=== PATIENT | female | born 1980 | race American Indian/Alaskan Native ===

== ENCOUNTER 2020-06-27 16:39 | Emergency (ER) | payer SELFPAY ==
--- NOTE | 2020-06-27 17:04 | Emergency Department Report ---
Blank Doc - Documentation Documentation: [id number] that presents with uncontrolled HTN. Stated has been out of her blood pressure medications for 4 months. Denies any symptoms or complaints. This initial assessment/diagnostic orders/clinical plan/treatment(s) is/are subject to change based on patient's health status, clinical progression and re- assessment by fellow clinical providers in the ED. Further treatment and workup at subsequent clinical providers discretion. Patient/guardians urged not to elope from the ED as their condition may be serious if not clinically assessed and managed. Initial orders include: 1- Patient sent to [facility] for further evaluation and treatment 2-labs/EKG r/o HTN emergency
[2020-06-27 17:32] LABS: Basophils % (Auto) 0.5 % (0.0-1.8); Eosinophils # (Auto) 0.1 K/mm3 (0.0-0.4); Eosinophils % (Auto) 0.8 % (0.0-4.3); Hematocrit 29.1 % (30.3-42.9); Hemoglobin 9.2 gm/dl (10.1-14.3); Mean Corpuscular HGB Conc 32 % (30-34); Mean Corpuscular Volume 79 fl (79-97); Monocytes # (Auto) 0.6 K/mm3 (0.0-0.8); Monocytes % (Auto) 7.6 % (0.0-7.3); Platelet Count 285 K/mm3 (140-440); Red Blood Count 3.66 M/mm3 (3.65-5.03)
[2020-06-27 17:39] LABS: Alanine Aminotransferase 119 units/L (7-56); Albumin 4.4 g/dL (3.9-5); Blood Urea Nitrogen 8 mg/dL (7-17); Calcium 9.2 mg/dL (8.4-10.2); Hemolysis Index 0
[2020-06-27 17:43] LABS: BUN/Creatinine Ratio 13
[2020-06-27] MEDS ORDERED: cloNIDine 0.2 MG TAB PO ONE (18:18)
[2020-06-27] MEDS ORDERED: HYDROcodone/ACETAMINOPHEN 5-325 MG TAB PO ONE (18:18)
--- NOTE | 2020-06-27 18:22 | Emergency Department Report ---
HPI - General Chief Complaint: High BP Time Seen by Provider: 06/27/20 17:02 - HPI HPI: Room 5 The patient is a 39-year-old female present with a chief complaint of hypertension. The patient states she awakened this morning with pain behind her left shoulder blade. Patient states the pain increases with movement. Patient denies any preceding trauma. Patient states she noticed that her blood pressure was elevated at 190 systolic. Patient states she went to an urgent care facility for her shoulder pain and was instructed to come to the ED secondary to her blood pressure. Patient states she has been out of her blood pressure medication for the past 4 months. Patient states when she first arrived to the ED she did not have a headache but she has since developed a frontal headache and gives it a score of 7/10 ED Past Medical Hx - Past Medical History Previous Medical History?: Yes Hx Hypertension: Yes - Surgical History Past Surgical History?: Yes Additional Surgical History: - Family History Family history: no significant - Social History Smoking Status: Current Every Day Smoker (1/3 pack/day) Substance Use Type: None (Denies illicit drug use), Alcohol (Daily) - Medications Home Medications: Home Medications Medication Instructions Recorded Confirmed Last Taken Type Ciprofloxacin HCl [Ciprofloxacin 500 mg PO Q12HR #14 tab 06/27/20 Unknown Rx TAB] HYDROcodone/APAP 5-325 [[place] 1 - 2 each PO Q6HR PRN #10 tablet 06/27/20 Unknown Rx 5/325] Ibuprofen [Motrin 800 MG tab] 800 mg PO Q8HR PRN #20 tablet 06/27/20 Unknown Rx NIFEdipine [Nifedipine ER] 60 mg PO BID #60 tab.er.24 06/27/20 Unknown Rx labetaloL [Labetalol 200mg TAB] 200 mg PO BID #60 tablet 06/27/20 Unknown Rx ED Review of Systems ROS: Stated complaint: HYPERTENSION Other details as noted in HPI Constitutional: no symptoms reported Eyes: denies: eye pain ENT: denies: throat pain Respiratory: no symptoms reported Cardiovascular: denies: chest pain Endocrine: no symptoms reported Gastrointestinal: denies: abdominal pain, nausea, vomiting Genitourinary: denies: dysuria Musculoskeletal: arthralgia, myalgia Neurological: headache Physical Exam - Physical Exam Vital Signs: Vital Signs 06/27/20 06/27/20 16:53 17:54 Temperature 98.6 F Pulse Rate 85 Respiratory 20 16 Rate Blood Pressure 221/124 O2 Sat by Pulse 100 97 Oximetry Physical Exam: GENERAL: The patient is well-developed well-nourished female lying on stretcher using cell phone not appearing to be in acute distress. [] HEENT: Normocephalic. Atraumatic. Extraocular motions are intact. Patient has moist mucous membranes. NECK: Supple. Trachea midline CHEST/LUNGS: Clear to auscultation. There is no respiratory distress noted. HEART/CARDIOVASCULAR: Regular. There is no tachycardia. There is no gallop rub or murmur. ABDOMEN: Abdomen is soft, nontender. Patient has normal bowel sounds. There is no abdominal distention. SKIN: There is no rash. There is no edema. There is no diaphoresis. NEURO: The patient is awake, alert, and oriented. The patient is cooperative. The patient has no focal neurologic deficits. The patient has normal speech MUSCULOSKELETAL: There is no evidence of acute injury. ED Course Vital Signs 06/27/20 06/27/20 16:53 17:54 Temperature 98.6 F Pulse Rate 85 Respiratory 20 16 Rate Blood Pressure 221/124 O2 Sat by Pulse 100 97 Oximetry ED Medical Decision Making - Lab Data Result diagrams: 06/27/20 17:05 06/27/20 17:05 Laboratory Tests 06/27/20 06/27/20 06/27/20 17:05 17:05 17:05 WBC 7.8 RBC 3.66 Hgb 9.2 L Hct 29.1 L MCV 79 MCH 25 L MCHC 32 RDW 19.0 H Plt Count 285 Lymph % (Auto) 25.0 [place] % (Auto) 7.6 H Eos % (Auto) 0.8 Baso % (Auto) 0.5 Lymph # (Auto) 2.0 [place] # (Auto) 0.6 Eos # (Auto) 0.1 Baso # (Auto) 0.0 Seg Neutrophils % 66.1 Seg Neutrophils # 5.2 Sodium 137 Potassium 4.1 Chloride 100.4 Carbon Dioxide 25 Anion Gap 16 BUN 8 Creatinine 0.6 Estimated GFR > 60 BUN/Creatinine Ratio 13 Glucose 128 H Calcium 9.2 Total Bilirubin 0.20 AST 147 H ALT 119 H Alkaline Phosphatase 63 Troponin T < 0.010 Total Protein 7.3 Albumin 4.4 Albumin/Globulin Ratio 1.5 Urine Color Urine Turbidity Urine pH Ur Specific [place] Urine Protein Urine Glucose (UA) Urine Ketones Urine Blood Urine Nitrite Urine Bilirubin Urine Urobilinogen Ur Leukocyte Esterase Urine WBC (Auto) Urine RBC (Auto) U Epithel Cells (Auto) Urine Bacteria (Auto) Urine Mucus Urine HCG, Qual 06/27/20 06/27/20 17:54 Unknown WBC RBC Hgb Hct MCV MCH MCHC RDW Plt Count Lymph % (Auto) [place] % (Auto) Eos % (Auto) Baso % (Auto) Lymph # (Auto) [place] # (Auto) Eos # (Auto) Baso # (Auto) Seg Neutrophils % Seg Neutrophils # Sodium Potassium Chloride Carbon Dioxide Anion Gap BUN Creatinine Estimated GFR BUN/Creatinine Ratio Glucose Calcium Total Bilirubin AST ALT Alkaline Phosphatase Troponin T Total Protein Albumin Albumin/Globulin Ratio Urine Color Yellow Urine Turbidity Slightly-cloudy Urine pH 5.0 Ur Specific [place] 1.023 Urine Protein 100 mg/dl Urine Glucose (UA) Neg Urine Ketones Tr Urine Blood Neg Urine Nitrite Neg Urine Bilirubin Neg Urine Urobilinogen 4.0 Ur Leukocyte Esterase Lg Urine WBC (Auto) 25.0 H Urine RBC (Auto) 2.0 U Epithel Cells (Auto) 20.0 H Urine Bacteria (Auto) 1+ Urine Mucus 3+ Urine HCG, Qual Negative - EKG Data -: EKG Interpreted by Mi EKG shows normal: sinus rhythm Rate: normal - EKG Data When compared to previous EKG there are: previous EKG unavailable Interpretation: other (No ischemic changes seen) - Radiology Data Radiology results: report reviewed (CT head), image reviewed (CT head) Findings [address] [address] Cat Scan Report Signed Patient: MEMO MCCABE MR#: [id number] : 1980 Acct:[id number] Age/Sex: 39 / F ADM Date: 06/27/20 Loc: ED Attending Dr: Ordering Physician: NEGRO PORTER MD Date of Service: 06/27/20 Procedure(s): CT head/brain wo con Accession Number(s): [id number] cc: NEGRO PORTER MD CT HEAD WITHOUT CONTRAST INDICATION / CLINICAL INFORMATION: Hypertension, headache. TECHNIQUE: All CT scans at this location are performed using CT dose reduction for ALARA by means of automated exposure control. COMPARISON: None available. FINDINGS: HEMORRHAGE: No evidence of intracranial hemorrhage or extra-axial fluid collection. EXTRA-AXIAL SPACES: Cortical sulci, sylvian fissures and basilar cisterns have an unremarkable appearance. VENTRICULAR SYSTEM: The ventricular system is of normal size and configuration. CEREBRAL PARENCHYMA: No areas of abnormal brain parenchymal attenuation are identified. There is no indication of recent infarction. MIDLINE SHIFT OR HERNIATION: There is no mass effect. CEREBELLUM / BRAINSTEM: Brainstem and cerebellum have an unremarkable appearance. MIDLINE STRUCTURES:No abnormalities of the pituitary gland or pineal region are identified. INTRACRANIAL VESSELS:No abnormalities are identified on this noncontrast head CT. ORBITS: visualized portions of the orbits have an unremarkable appearance. SOFT TISSUES of HEAD: No significant abnormality. CALVARIUM: Evaluation of bone windows reveals no abnormalities. PARANASAL SINUSES / MASTOID AIR CELLS: Paranasal sinuses are free from inflammatory mucosal disease. Mastoid air cells are normally pneumatized. IMPRESSION: 1. Normal head CT without contrast. Signer Name: Blane Cain MD Signed: 06/27/2020 6:59 PM Workstation Name: [id number] Transcribed By: Dictated By: Blane Cain MD Electronically Authenticated By: Blane Cain MD Signed Date/Time: 06/27/201858 DD/ 57 TD/TT: - Differential Diagnosis Hypertensive urgency, hypertensive emergency, rotator cuff injury, bursitis Critical care attestation.: If time is entered above; I have spent that time in minutes in the direct care of this critically ill patient, excluding procedure time. ED Disposition Clinical Impression: Uncontrolled hypertension, Left shoulder pain Disposition: - TO HOME OR SELFCARE Is pt being admited?: No Does the pt Need Aspirin: No Condition: Stable Instructions: Hypertension (ED), Hypertension, Adult, [id number], Rotator Cuff Tendinitis, Rotator Cuff Tear Additional Instructions: Return to the emergency department should you develop worsening symptoms, inability to tolerate food or liquids, high fever or any other concerns Prescriptions: Ciprofloxacin HCl [Ciprofloxacin TAB] 500 mg PO Q12HR #14 tab labetaloL [Labetalol 200mg TAB] 200 mg PO BID #60 tablet Ibuprofen [Motrin 800 MG tab] 800 mg PO Q8HR PRN #20 tablet PRN Reason: Pain, Moderate (4-6) NIFEdipine [Nifedipine ER] 60 mg PO BID #60 tab.er.24 HYDROcodone/APAP 5-325 [[place] 5/325] 1 - 2 each PO Q6HR PRN #10 tablet PRN Reason: Pain Referrals: PRIMARY CAREMD [Primary Care Provider] - 3-5 Days [facility] [Provider Group] - 3-5 Days GOOD MUNIZ MD [Staff Physician] - 3-5 Days (Dr. Muniz is an orthopedic surgeon. Please follow-up with him for further evaluation of your left shoulder pain) Time of Disposition: 20:12
[2020-06-27 18:28] LABS: HCG Qualitative,Urine Negative (Negative)
[2020-06-27 18:33] LABS: Bacteria,Urine 1+ /HPF (Negative); Bilirubin,Urine NEG (Negative); Blood,Urine NEG (Negative); Color,Urine Yellow (Yellow); Mucus,Urine 3+ /HPF
--- NOTE | 2020-06-27 19:03 | Cat Scan Report ---
CT HEAD WITHOUT CONTRAST INDICATION / CLINICAL INFORMATION: Hypertension, headache. TECHNIQUE: All CT scans at this location are performed using CT dose reduction for ALARA by means of automated e xposure control. COMPARISON: None available. FINDINGS: HEMORRHAGE: No evidence of intracranial hemorrhage or extra-axial fluid collection. EXTRA-AXIAL SPACES: Cortical sulci, sylvian fissures and basilar cisterns have an unremarkable appear ance. VENTRICULAR SYSTEM: The ventricular system is of normal size and configuration. CEREBRAL PARENCHYMA: No areas of abnormal brain parenchymal attenuation are identified. There is no i ndication of recent infarction. MIDLINE SHIFT OR HERNIATION: There is no mass effect. CEREBELLUM / BRAINSTEM: Brainstem and cerebellum have an unremarkable appearance. MIDLINE STRUCTURES:No abnormalities of the pituitary gland or pineal region are identified. INTRACRANIAL VESSELS:No abnormalities are identified on this noncontrast head CT. ORBITS: visualized portions of the orbits have an unremarkable appearance. SOFT TISSUES of HEAD: No significant abnormality. CALVARIUM: Evaluation of bone windows reveals no abnormalities. PARANASAL SINUSES / MASTOID AIR CELLS: Paranasal sinuses are free from inflammatory mucosal disease. Mastoid air cells are normally pneumatized. IMPRESSION: 1. Normal head CT without contrast. Signer Name: Blane Cain MD Signed: 06/27/2020 6:59 PM Workstation Name: [id number]
[2020-06-27 20:01] VITALS: BP 161/104
== END 2020-06-27 20:10 | disposition home or self-care (01) ==
LOC: ED 16:39
DX: I10 Essential (primary) hypertension (principal); M25.512 Pain in left shoulder; F17.200 Nicotine dependence, unspecified, uncomplicated; Z79.899 Other long term (current) drug therapy
CPT/HCPCS: 36415; 70450; 80053; 81001; 81025; 84484; 85025; 87086; 93005

== ENCOUNTER 2021-08-14 14:36 | Emergency (ER) | payer MEDICAID, OTHER ==
[2021-08-14] MEDS ORDERED: KETOROLAC 30 MG/1 ML INJ IM ONE (14:45)
--- NOTE | 2021-08-14 14:49 | Emergency Department Report ---
ED General Adult HPI - General Chief complaint: Pain General Stated complaint: extreme pain Time Seen by Provider: 08/14/21 14:44 Source: patient Mode of arrival: Ambulatory Limitations: No Limitations - History of Present Illness Initial comments: Patient presents with 1/2-day history of myalgia. She reports having severe body pain. This started this morning. She woke up and the pain was there. She has had cough with congestion. She states that she feels as though her head is going to explode. She has muscle aches all over. This include arms and legs, neck and back, chest and abdomen. She states that she has severe pain and just cannot get comfortable. She did not take anything at home. She has cough with congestion. Cough has been nonproductive. She has had subjective fevers and chills. There is no GI or complaint. She has not been vaccinated for COVID or influenza. Severity scale (0 -10): 10 - Related Data Previous Rx's Medication Instructions Recorded Last Taken Type HYDROcodone/APAP 5-325 [[place] 1 - 2 each PO Q6HR PRN #10 tablet 06/27/20 Unknown Rx 5/325] NIFEdipine [Nifedipine ER] 60 mg PO BID #60 tab.er.24 06/27/20 Unknown Rx Albuterol Sulfate [Proventil Hfa] 2 puff IH 4XD #1 unit 08/14/21 Unknown Rx Ibuprofen [Motrin 800 MG tab] 800 mg PO Q8HR PRN #20 tablet 08/14/21 Unknown Rx labetaloL [Labetalol 200mg TAB] 200 mg PO BID #60 tablet 08/14/21 Unknown Rx Allergies Allergy/AdvReac Type Severity Reaction Status Date / Time No Known Allergies Allergy Unverified 08/14/21 14:42 ED Review of Systems ROS: Stated complaint: extreme pain Other details as noted in HPI Comment: All other systems reviewed and negative Constitutional: see HPI Eyes: denies: eye pain ENT: denies: throat pain Respiratory: see HPI Cardiovascular: denies: edema Endocrine: denies: unexplained weight loss Gastrointestinal: denies: vomiting Genitourinary: denies: dysuria Musculoskeletal: as per HPI Skin: denies: rash Neurological: as per HPI Hematological/Lymphatic: denies: easy bruising ED Past Medical Hx - Past Medical History Previous Medical History?: Yes Hx Hypertension: Yes - Surgical History Additional Surgical History: - Family History Family history: hypertension - Social History Smoking Status: Current Every Day Smoker (1/3 pack/day) Substance Use Type: None (Denies illicit drug use), Alcohol (Daily) - Medications Home Medications: Home Medications Medication Instructions Recorded Confirmed Last Taken Type HYDROcodone/APAP 5-325 [[place] 1 - 2 each PO Q6HR PRN #10 tablet 06/27/20 Unknown Rx 5/325] NIFEdipine [Nifedipine ER] 60 mg PO BID #60 tab.er.24 06/27/20 Unknown Rx Albuterol Sulfate [Proventil Hfa] 2 puff IH 4XD #1 unit 08/14/21 Unknown Rx Ibuprofen [Motrin 800 MG tab] 800 mg PO Q8HR PRN #20 tablet 08/14/21 Unknown Rx labetaloL [Labetalol 200mg TAB] 200 mg PO BID #60 tablet 08/14/21 Unknown Rx ED Physical Exam - General Limitations: No Limitations, Other (Patient is moaning and writhing and screaming due to her pain) General appearance: alert, in no apparent distress (No respiratory distress), other (Pulse ox noted and normal) - Head Head exam: Present: atraumatic, normocephalic - Eye Eye exam: Present: normal appearance, EOMI. Absent: scleral icterus - ENT ENT exam: Present: normal external ear exam - Neck Neck exam: Present: normal inspection. Absent: meningismus - Respiratory Respiratory exam: Present: normal lung sounds bilaterally. Absent: respiratory distress - Cardiovascular Cardiovascular Exam: Present: normal rhythm, tachycardia - GI/Abdominal GI/Abdominal exam: Present: soft. Absent: distended - Extremities Exam Extremities exam: Present: normal capillary refill. Absent: pedal edema - Back Exam Back exam: Present: paraspinal tenderness (Diffuse) - Neurological Exam Neurological exam: Present: alert, oriented X3, CN II-XII intact. Absent: motor sensory deficit - Psychiatric Psychiatric exam: Present: other (Writhing and moaning in pain out of proportion to any type of exam findings) - Skin Skin exam: Present: warm, dry ED Course Vital Signs 08/14/21 14:41 Temperature 99.9 F H Pulse Rate 115 H Respiratory 22 Rate Blood Pressure 199/126 O2 Sat by Pulse 100 Oximetry - Reevaluation(s) Reevaluation #1: 08/14/21 15:02 Patient was seen as above. Old records noted. Patient was discharged. ED Medical Decision Making - Medical Decision Making Patient presents with upper respiratory symptoms and myalgia. She likely has coronavirus. She has been instructed to isolate at home. She has been treated symptomatically. We will treat her symptoms. There is no adventitious breath sounds suggestive of pneumonia. She has no meningeal signs to suggest meningitis. There is no trauma that she has any type of injury to her head, neck, chest, back, or torso. Critical Care Time: No Critical care attestation.: If time is entered above; I have spent that time in minutes in the direct care of this critically ill patient, excluding procedure time. ED Disposition Clinical Impression: Myalgia, Viral URI, Exposure to COVID-19 virus Disposition: HOME / SELF CARE / HOMELESS Is pt being admited?: No Condition: Stable Instructions: Viral Respiratory Infection, [id number], Musculoskeletal Pain Additional Instructions: USE TYLENOL FOR PAIN AND FEVER. RETURN FOR PROBLEMS. SEE YOUR DOCTOR FOR RECHECK. ISOLATE AT HOME. CONSIDER COVID TESTING AN OUTPATIENT. Prescriptions: labetaloL [Labetalol 200mg TAB] 200 mg PO BID #60 tablet Ibuprofen [Motrin 800 MG tab] 800 mg PO Q8HR PRN #20 tablet PRN Reason: Pain, Moderate (4-6) Albuterol Sulfate [Proventil Hfa] 2 puff IH 4XD #1 unit Referrals: PRIMARY MD ML [Referring] - 3-5 Days LUCINA LANDIS MD [Staff Physician] - 3-5 Days
[2021-08-14 17:50] VITALS: BP 194/125
== END 2021-08-14 17:48 | disposition home or self-care (01) ==
LOC: ED 14:36
DX: M79.10 Myalgia, unspecified site (principal); J06.9 Acute upper respiratory infection, unspecified; I10 Essential (primary) hypertension; F17.200 Nicotine dependence, unspecified, uncomplicated; Z20.822 Contact with and (suspected) exposure to COVID-19; Z98.890 Other specified postprocedural states; Z79.899 Other long term (current) drug therapy
CPT/HCPCS: 96372; 99282; J1885

== ENCOUNTER 2022-03-05 14:26 | Emergency (ER) | payer OTHER ==
[2022-03-05] MEDS ORDERED: MORPHINE 4 MG/1 ML INJ IM ONE (15:47)
[2022-03-05] MEDS ORDERED: KETOROLAC 30 MG/1 ML INJ IM ONE (15:47)
--- NOTE | 2022-03-05 15:47 | Event Note ---
ED Screening Note ED Screening Note: 41-year-old female history of hypertension presenting with midthoracic pain described as sharp, trouble moving. Does not radiate to the extremities no headache dizziness vision changes. General: Nontoxic appearing no acute distress Cardiac: Regular rate, normal heart sounds Respiratory: Normal lung sounds bilaterally no use of climate change risk assessor muscles GI/-normal sounds, nontender no guarding Musculoskeletal-+ thoracic tender Neuro-alert oriented x4. In the setting of a significantly high volume and record number of patients presenting to the emergency department and the fact that we have a limited space to see patients we have implemented the provider in triage protocol this allows an expedited initial exam of patients that might otherwise have left without being seen or who would wait longer than usual to be seen by provider. I interviewed the patient and performed a limited physical exam. This patient is a pulled from the waiting room to triage room for an initial assessment of adrenal studies and then returned to the waiting room pending results of the studies. The ultimate final evaluation and disposition may be performed by another provider depending on room and provider availability.
[2022-03-05] MEDS ORDERED: diazePAM 5 MG TAB PO ONE (15:48)
--- NOTE | 2022-03-05 17:32 | Emergency Department Report ---
ED Back Pain/Injury HPI - General Chief Complaint: Back Pain/Injury Stated Complaint: BACK PAIN Time Seen by Provider: 03/05/22 15:43 Source: patient Limitations: No Limitations - History of Present Illness Initial Comments: 41-year-old black female with a past medical history of hypertension presents to the emergency department for evaluation of 2-day history of worsening mid upper back pain. She denies injury or trauma but states that pain has been persistent and gets worse with any movement. She denies chest pain, nausea, vomiting, shortness of breath, headache, dizziness, and fever. She states that pain is worst was 10 out of 10 but states that since she had medications prescribed in triage that she is totally pain-free. MD Complaint: back pain -: Gradual, days(s) (2) Similar Symptoms Previously: No Place: home Radiation: none Severity scale (0 -10): 10 Quality: aching Consistency: now resolved Worsens With: movement, deep breaths/cough Associated Symptoms: denies: confusion, weakness, chest pain, numbness, difficulty walking, cough, difficulty urinating, diaphoresis, incontinence, fever/chills, headaches, abdominal pain, loss of appetite, malaise, nausea/vomiting, rash, seizure, shortness of breath, syncope - Related Data Previous Rx's Medication Instructions Recorded Last Taken Type HYDROcodone/APAP 5-325 [[place] 1 - 2 each PO Q6HR PRN #10 tablet 06/27/20 Unknown Rx 5/325] NIFEdipine [Nifedipine ER] 60 mg PO BID #60 tab.er.24 06/27/20 Unknown Rx Albuterol Sulfate [Proventil Hfa] 2 puff IH 4XD #1 unit 08/14/21 Unknown Rx Ibuprofen [Motrin 800 MG tab] 800 mg PO Q8HR PRN #20 tablet 08/14/21 Unknown Rx labetaloL [Labetalol 200mg TAB] 200 mg PO BID #60 tablet 08/14/21 Unknown Rx Cyclobenzaprine [Flexeril] 10 mg PO TID PRN #30 tab 03/05/22 Unknown Rx Lidocaine [Lidoderm] 1 each TP DAILY PRN #10 patch 03/05/22 Unknown Rx Naproxen [EC-Naproxen] 500 mg PO BID #14 tab 03/05/22 Unknown Rx Allergies Allergy/AdvReac Type Severity Reaction Status Date / Time No Known Allergies Allergy Unverified 08/14/21 14:42 ED Review of Systems ROS: Stated complaint: BACK PAIN Other details as noted in HPI Comment: All other systems reviewed and negative Constitutional: denies: chills ENT: denies: congestion Respiratory: denies: orthopnea, shortness of breath, SOB with exertion, SOB at rest, stridor, wheezing Cardiovascular: denies: chest pain, palpitations, dyspnea on exertion Gastrointestinal: denies: abdominal pain, nausea, diarrhea, hematemesis, melena, hematochezia Genitourinary: denies: urgency, dysuria, frequency, hematuria, discharge Musculoskeletal: back pain Skin: denies: rash, lesions Neurological: denies: headache, weakness ED Past Medical Hx - Past Medical History Hx Hypertension: Yes - Surgical History Additional Surgical History: - Social History Smoking Status: Never Smoker - Medications Home Medications: Home Medications Medication Instructions Recorded Confirmed Last Taken Type HYDROcodone/APAP 5-325 [[place] 1 - 2 each PO Q6HR PRN #10 tablet 06/27/20 Unknown Rx 5/325] NIFEdipine [Nifedipine ER] 60 mg PO BID #60 tab.er.24 06/27/20 Unknown Rx Albuterol Sulfate [Proventil Hfa] 2 puff IH 4XD #1 unit 08/14/21 Unknown Rx Ibuprofen [Motrin 800 MG tab] 800 mg PO Q8HR PRN #20 tablet 08/14/21 Unknown Rx labetaloL [Labetalol 200mg TAB] 200 mg PO BID #60 tablet 08/14/21 Unknown Rx Cyclobenzaprine [Flexeril] 10 mg PO TID PRN #30 tab 03/05/22 Unknown Rx Lidocaine [Lidoderm] 1 each TP DAILY PRN #10 patch 03/05/22 Unknown Rx Naproxen [EC-Naproxen] 500 mg PO BID #14 tab 03/05/22 Unknown Rx ED Physical Exam - General Limitations: No Limitations General appearance: alert, in no apparent distress - Head Head exam: Present: atraumatic, normocephalic - Eye Eye exam: Present: normal appearance. Absent: conjunctival injection, periorbital swelling, periorbital tenderness - Neck Neck exam: Present: normal inspection, full ROM. Absent: tenderness, lymphadenopathy - Respiratory Respiratory exam: Present: normal lung sounds bilaterally. Absent: respiratory distress, wheezes, rales, rhonchi, stridor, chest wall tenderness - Cardiovascular Cardiovascular Exam: Present: regular rate, normal heart sounds - GI/Abdominal GI/Abdominal exam: Present: soft, normal bowel sounds. Absent: distended, tenderness, guarding, rebound, rigid - Extremities Exam Extremities exam: Present: normal inspection, normal capillary refill. Absent: pedal edema, joint swelling, calf tenderness - Back Exam Back exam: Present: normal inspection, tenderness (Mid thoracic area, no vertebral tenderness noted). Absent: CVA tenderness (R), CVA tenderness (L), vertebral tenderness - Expanded Back Exam Expanded Back exam: Absent: saddle anesthesia - Neurological Exam Neurological exam: Present: alert, oriented X3, CN II-XII intact, normal gait, reflexes normal. Absent: motor sensory deficit - Psychiatric Psychiatric exam: Present: normal affect, normal mood - Skin Skin exam: Present: warm, dry, intact, normal color ED Course Vital Signs 03/05/22 15:48 Temperature 98.5 F Pulse Rate 80 Respiratory 18 Rate Blood Pressure 171/105 O2 Sat by Pulse 99 Oximetry ED Medical Decision Making - Medical Decision Making 41-year-old black female with a past medical history of hypertension presents to the emergency department for evaluation of 2-day history of worsening mid upper back pain. She denies injury or trauma but states that pain has been persistent and gets worse with any movement. She denies chest pain, nausea, vomiting, shortness of breath, headache, dizziness, and fever. She states that pain is worst was 10 out of 10 but states that since she had medications prescribed in triage that she is totally pain-free. Physical exam unremarkable. Back pain totally resolved after medication. Patient will be discharged home with naproxen, Flexeril, and Lidoderm patches to use as needed for back pain. She is advised to follow-up with her primary care provider if worsening symptoms or return to the emergency department as needed. She verbalizes understanding of and agreement with plan of care. Critical care attestation.: If time is entered above; I have spent that time in minutes in the direct care of this critically ill patient, excluding procedure time. ED Disposition Clinical Impression: Back pain Qualifiers: Back pain location: thoracic back pain Chronicity: acute Back pain laterality: midline Qualified Code(s): M54.6 - Pain in thoracic spine Disposition: 01 HOME / SELF CARE / HOMELESS Is pt being admited?: No Does the pt Need Aspirin: No Condition: Stable Instructions: Acute Back Pain, Adult Additional Instructions: Take medications as prescribed. Follow-up with your primary care provider if no improvement or worsening symptoms. Return to the emergency department as needed. Prescriptions: Naproxen [EC-Naproxen] 500 mg PO BID #14 tab Cyclobenzaprine [Flexeril] 10 mg PO TID PRN #30 tab PRN Reason: Muscle Spasm Lidocaine [Lidoderm] 1 each TP DAILY PRN #10 patch PRN Reason: Pain, Moderate (4-6) Referrals: MONIKA MERCADO MD [Staff Physician] - 3-5 Days Forms: Work/School Release Form(ED) Time of Disposition: 17:38
[2022-03-05 18:50] VITALS: BP 118/87
== END 2022-03-05 19:10 | disposition home or self-care (01) ==
LOC: ED 14:26
DX: M54.9 Dorsalgia, unspecified (principal); I10 Essential (primary) hypertension
CPT/HCPCS: 96372; 99282; J1885; J2270